=== PATIENT | male | born 1940 | race Caucasian/White ===

== ENCOUNTER 2018-04-13 07:33 | Day surgery (SDC) | payer OTHER, BC ==
[2018-04-07 17:26] VITALS: BMI 28.3
[2018-04-13] MEDS ORDERED: ERYTHROMYCIN 0.5% OPHTHALMIC OINTMENT 3.5 GM TUBE ONE (09:34)
[2018-04-13] MEDS ORDERED: LIDOCAINE 1%/EPI 1:100000 (20 ML MULTI DOSE VIAL) ONE (09:34)
[2018-04-13] MEDS ORDERED: TETRACAINE 0.5% OPHTH SOLN 2 ML BOTTLE ONE (09:34)
[2018-04-13] MEDS ORDERED: THROMBIN (RECOMBINANT) 5,000 UNIT VIAL TP ONE (09:34)
[2018-04-13] MEDS ORDERED: POVIDONE-IODINE 5% OPHTHALMIC PREP 30 ML SOLUTION ONE (09:35)
[2018-04-13] MEDS ORDERED: BUPIVACAINE HCL/PF 0.5% (5MG/ML) 10 ML VIAL ONE (09:35)
[2018-04-13] MEDS ORDERED: LIDOCAINE HCL 2% JELLY (5 ML/TUBE) ONE (09:45)
[2018-04-13] MEDS ORDERED: PROPOFOL 20 ML ONE (09:47)
[2018-04-13] MEDS ORDERED: MIDAZOLAM HCL 2 MG/2 ML SINGLE DOSE VIAL ONE (09:47)
[2018-04-13] MEDS ORDERED: ceFAZolin SODIUM 1 GM VIAL ONE (10:06)
[2018-04-13] MEDS ORDERED: DEXAMETHASONE SOD PHOSPHATE 4 MG/1 ML VIAL ONE (10:06)
[2018-04-13] MEDS ORDERED: ONDANSETRON 4 MG/2 ML VIAL ONE (10:06)
[2018-04-13] MEDS ORDERED: KETOROLAC TROMETHAMINE 30 MG/1 ML VIAL ONE (10:06)
[2018-04-13] MEDS ORDERED: LIDOCAINE HCL/PF 2% SDV 5ML VIAL ONE (10:06)
[2018-04-13] MEDS ORDERED: TETRACAINE 0.5% HCL 0.6ML DROPPER.BOTTLE OU ONE (10:11)
[2018-04-13] MEDS ORDERED: ePHEDrine SULFATE 50 MG/1 ML AMPULE ONE (10:22)
[2018-04-13] MEDS ORDERED: ERYTHROMYCIN 0.5% OPHTHALMIC OINTMENT 3.5 GM TUBE OU ONE (11:46)
[2018-04-13] MEDS ORDERED: oxyCODONE HCL 5 MG TABLET PO PRN (12:02)
[2018-04-13] MEDS ORDERED: PROMETHAZINE HCL 25 MG/1 ML VIAL IVPB PRN (12:02)
[2018-04-13] MEDS ORDERED: ONDANSETRON 4 MG/2 ML VIAL IVPUSH PRN (12:02)
[2018-04-13 13:01] VITALS: TEMP 98.5
[2018-04-13 13:32] VITALS: BP 138/67; PULSE 71
--- NOTE | 2018-04-14 09:31 | OP ---
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 PROCEDURE: 1. Lateral tarsal strip, right lower lid. 2. Midface lift, right. 3. Punctoplasty, right lower lid. 4. Conjunctivoplasty with excision of conjunctivochalasis, right lower lid and punctal inversion, right lower lid. 5. Schaffer suture, right lower lid. 6. Lateral tarsal strip, left lower lid. 7. Punctoplasty, left lower lid. 8. Conjunctivoplasty with punctal inversion and excision of conjunctivochalasis, left lower lid. SURGEON: Dewayne Onofre MD ANESTHESIA: LMA. COMPLICATONS: None. ESTIMATED BLOOD LOSS: 10-20 mL OPERATION REPORT: Patient was brought to the operating room, placed under LMA anesthesia. Time-out was performed. Lateral canthal lines were marked in both lower lids, lateral canthus, and patient was given a 50/50 mixture of 2% Xylocaine with 1:100,000 epinephrine and 0.5% Marcaine at both lateral canthi down to the periosteum lateral third of the upper and lower lids subconjunctivally along the lower lids, and a massage was applied for gentle hemostasis, and diffusely in the right lower lid, injection was given down to the periosteum for preparation of the midface lift on the right. Patient was prepped and draped in the usual sterile fashion exposing both eyes. Attention was turned to the right eye first. The left eye was taped closed. A lateral canthal incision was made at the right lateral canthus, carried down to periosteum, and 4-0 silk traction suture was passed through the central lid margin on the right. The lateral canthal tendon was released inferiorly. Lid was everted over Desmarres retractor, and a button hole was made 2 mm below the tarsal plate down to the postorbicularis fascia. Conjunctival retractors were then dissected down nasally and temporally, and then, a plane was dissected down along the septum down to the orbital rim. Conjunctival retractors were secured with 4-0 silk which was used to protect the cornea. The periosteum was now incised widely across the lower rim down to the lateral canthus, and the periosteum was then elevated with a [place] periosteal elevator the periosteum from the maxillary face down to where it recessed posteriorly, and around the neurovascular bundle, but not damaging the neurovascular bundle. Metzenbaum scissors were then used after hemostasis was achieved with minimal cautery and some Cottonoid packing with thrombin. Using Metzenbaum and Barajas scissors, the periosteum was now widely opened across the inferior and lateral aspect of the cheek to allow elevation of the cheek tissues and recruit skin into the lower lid. Once hemostasis was achieved, the conjunctiva was closed with a running 6-0 plain suture. The lateral tarsal strip was then created at the lateral end of the right lower lid by overlapping it, marking, and dividing it with a No. 11 blade, moving the epithelium from superior to posterior, and then, this lateral tarsal strip was attached to the orbital rim with a double-arm 5-0 Prolene suture reinforced with a 6-0 Vicryl lasso suture. It was passed through the internal surface of the orbital rim at the junction with the superior vijay and lateral canthal tendon. It was not tied at this point. Punctum was dilated with a punctal dilator, and a posterior snip procedure with excision at the posterior wall of the punctum was carried out due to punctal stenosis. A subpunctal conjunctival retractor was excised, and this was closed with a double-arm 5-0 chromic grabbing inferior retractor superior tarsal dariana and exiting through full-thickness side of the nasal inverting the punctum. Prior to tying all of these sutures, the caruncle and inferior nasal conjunctiva was excised with a [place] needle to remove the conjunctivochalasis. The punctal inversion suture was now tied inverting the punctum. The lateral canthal line was performed with a 5-0 chromic suture to the santiago line of the upper and lower lids. The Prolene suture was now tied attaching the tarsal strip to the orbital rim. Muscle and orbicularis flap was now dissected off of the skin at the lateral canthus to allow for elevation and support of the lower lid, and this orbicularis flap was secured to the periosteum lateral to the orbital rim above the horizontal raphe with a double-arm 5-0 Vicryl suture elevating the cheek. The muscle was also sutured to the superior orbicularis with a 6-0 Vicryl, and skin was closed with interrupted and running 6-0 plain suture. A double-arm 4-0 silk was passed through the skin in santiago line of the lateral right lower lid after being passed through a No. 8 silicone bolster, and this was used as a full traction suture. At the end of the case, erythromycin ointment was placed in the eye and on the sutures on the area of the conjunctival excision nasally, and the punctoplasty nasal sutures laterally, and the Schaffer suture. The Schaffer suture would be secured to the forehead with Mastisol and Steri-Strips placing the lid on stretch. On the left side, a lateral canthal incision was made. This was carried down to periosteum. The inferior vijay of the lateral canthal tendon was from the orbital rim with sharp dissection. A punctal subpunctal conjunctival retractors was excised creating conjunctivoplasty. Punctum-punctum was dilated, left lower lid, and a punctoplasty was performed with the Sarita scissors, removing the posterior wall of the punctum, and this was redilated. The subpunctal césar was closed with a double-arm 5-0 chromic grabbing the inferior retractor superior tarsal conjunctiva exiting through full-thickness side of the nasal inverting the punctum. Excess conjunctivochalasis was excessed conjunctiva and inferior caruncle to the left, we passed through tiers into the dilated punctum. The lateral canthi was reformed with a bilateral chromic buried to the santiago line in the upper and lower lid. The lateral tarsal strip was now tied with the Prolene to the orbital rim at the junction with the superior vijay lateral canthal tendon being carefully to be relatively symmetric with the contralateral side. This was tied, reattaching the tarsal strip, which had been created by overlapping the lid at the orbital rim and marking with a sterile marking pen and dividing to an anterior posterior denuding epithelium much as it was done on the right side. Once the Prolene was tied, the muscle layer was closed with 5-0 chromic after antibiotic irrigation, the skin was closed with interrupted running 6-0 plain suture. Antibiotic irrigation was used throughout the case. No Schaffer suture was used on the left side as no midface was done on the left side. Erythromycin ointment was again placed in the eye, and all the sutures nasally on the excision sites nasally and on the sutures nasally and temporally, and the patient was awakened from anesthesia and taken to the recovery room in stable condition. DEWAYNE ONOFRE M.D. GLENN/[id number]
--- NOTE | 2018-04-15 16:51 | PATH ---
Surgical Pathology Report Patient Name: JOSE ROSAS Med. Rec. #: [id number] /Age/Gender: 1940 (Age: 77) / M Account: [id number] Location: [facility] Taken: 04/13/2018 Received: 04/13/2018 Reported: 04/15/2018 Physicians: Raad Onofre Specimen(s) Received A: RIGHT EYE CONJUNCTIVA B: LEFT EYE CONJUNCTIVA Clinical History Ectropion both lower eyelids Final Diagnosis A. EYE, CONJUNCTIVA, RIGHT, REPAIR ECTROPION, PUNCTOPLASTY, PUNCTAL EVERSION AND EXCISION OF CONJUNCTIVA CHALASIS: CONJUNCTIVAL MUCOSA WITH MILD CHRONIC INFLAMMATION, DEGENERATIVE CHANGES, AND FIBROSIS. B. EYE, CONJUNCTIVA, LEFT, REPAIR ECTROPION: CONJUNCTIVAL MUCOSA WITH FOCAL MILD CHRONIC INFLAMMATION AND FIBROSIS. Electronically Signed Ana Ludwig M.D. Gross Description A. Received in formalin labeled "left eye conjunctiva," is a 0.3 cm greatest dimension garcia soft tissue fragment. The specimen is submitted in toto in one cassette. B. Received in formalin labeled "right eye conjunctiva," is a 0.1 cm greatest dimension garcia soft tissue fragment. The specimen is submitted in toto in one cassette. 04/14/201804/14/2018
== END 2018-04-13 13:30 | disposition home or self-care (01) ==
LOC: FASU 07:33
PROVIDERS: ATTEND Ophthalmology
PROC: 08SQ0ZZ Reposition Right Lower Eyelid, Open Approach (ICD-10-PCS; 2018-04-13)
PROC: 08SR0ZZ Reposition Left Lower Eyelid, Open Approach (ICD-10-PCS; 2018-04-13)
PROC: 08SQ0ZZ Reposition Right Lower Eyelid, Open Approach (ICD-10-PCS; 2018-04-13)
PROC: 08QSXZZ Repair Right Conjunctiva, External Approach (ICD-10-PCS; 2018-04-13)
PROC: 08QQXZZ Repair Right Lower Eyelid, External Approach (ICD-10-PCS; 2018-04-13)
PROC: 08QNXZZ Repair Right Upper Eyelid, External Approach (ICD-10-PCS; 2018-04-13)
PROC: 08SR0ZZ Reposition Left Lower Eyelid, Open Approach (ICD-10-PCS; principal; 2018-04-13 10:22)
DX: H02.112 Cicatricial ectropion of right lower eyelid (principal); H02.115 Cicatricial ectropion of left lower eyelid; H04.203 Unspecified epiphora, bilateral; H04.523 Eversion of bilateral lacrimal punctum
CPT/HCPCS: 88304-TC; 94760

== ENCOUNTER 2022-12-30 06:16 | Day surgery (SDC) | payer OTHER, BC ==
[2022-12-23 11:22] VITALS: BMI 29.2
[2022-12-30] MEDS ORDERED: TETRACAINE 0.5% OPHTH SOLN 2 ML BOTTLE ONE (07:14)
[2022-12-30] MEDS ORDERED: BUPIVACAINE HCL/PF 0.5% (5MG/ML) 10 ML VIAL ONE (07:14)
[2022-12-30] MEDS ORDERED: ceFAZolin SODIUM 1 GM VIAL ONE ×2 (07:14→07:31)
[2022-12-30] MEDS ORDERED: POVIDONE-IODINE 5% OPHTHALMIC PREP 30 ML SOLUTION ONE (07:14)
[2022-12-30] MEDS ORDERED: ERYTHROMYCIN 0.5% OPHTHALMIC OINTMENT 3.5 GM TUBE ONE (07:14)
[2022-12-30] MEDS ORDERED: LIDOCAINE 1%-EPI 1:100,000 30 ML MDV IJ ONE (07:14)
[2022-12-30] MEDS ORDERED: ONDANSETRON 4 MG/2 ML VIAL ONE (07:31)
[2022-12-30] MEDS ORDERED: KETOROLAC TROMETHAMINE 30 MG/1 ML VIAL ONE (07:31)
[2022-12-30] MEDS ORDERED: DEXAMETHASONE SOD PHOSPHATE 4 MG/1 ML VIAL ONE (07:31)
[2022-12-30] MEDS ORDERED: MIDAZOLAM HCL 2 MG/2 ML SINGLE DOSE VIAL ONE (07:32)
[2022-12-30] MEDS ORDERED: PROPOFOL 60 ML ONE (07:32)
[2022-12-30] MEDS ORDERED: SUCCINYLCHOLINE CHLORIDE 200 MG/10 ML SYRINGE ONE (07:33)
[2022-12-30] MEDS ORDERED: KETAMINE HCL 200 MG/20 ML VIAL ONE (08:30)
[2022-12-30] MEDS ORDERED: PROPOFOL 20 ML ONE (09:49)
[2022-12-30] MEDS ORDERED: ONDANSETRON 4 MG/2 ML VIAL IVPUSH PRN (10:20)
[2022-12-30] MEDS ORDERED: oxyCODONE HCL 5 MG TABLET PO PRN (10:20)
[2022-12-30] MEDS ORDERED: oxyCODONE HCL 5 MG TABLET ONE (11:09)
[2022-12-30 11:58] VITALS: TEMP 96.7
[2022-12-30 12:04] VITALS: BP 168/80; PULSE 62; RESP 19
== END 2022-12-30 11:45 | disposition home or self-care (01) ==
LOC: FASU 06:16
PROVIDERS: ATTEND Ophthalmology
PROC: 08SQ0ZZ Reposition Right Lower Eyelid, Open Approach (ICD-10-PCS; principal; 2022-12-30 07:30)
DX: H02.012 Cicatricial entropion of right lower eyelid (principal); H04.201 Unspecified epiphora, right side
CPT/HCPCS: 94760